=== PATIENT | male | born 1945 | race American Indian/Alaskan Native ===

== ENCOUNTER 2017-10-11 11:42 | Emergency (ER) | payer MEDICARE ==
[2017-10-11 13:08] LABS: Basophils % (Auto) 0.2 % (0.0-1.8); Eosinophils % (Auto) 0.1 % (0.0-4.3); Hematocrit 38.1 % (35.5-45.6); Hemoglobin 12.3 gm/dl (11.8-15.2); Lymphocytes # (Auto) 0.9 K/mm3 (1.2-5.4); Lymphocytes % (Auto) 22.1 % (13.4-35.0); Mean Corpuscular HGB Conc 32 % (32-34); Mean Corpuscular Hemoglobin 28 pg (28-32); Mean Corpuscular Volume 86 fl (84-94); Monocytes # (Auto) 0.2 K/mm3 (0.0-0.8); Monocytes % (Auto) 4.1 % (0.0-7.3); Platelet Count 152 K/mm3 (140-440); Red Blood Count 4.46 M/mm3 (3.65-5.03); Red Cell Distribution Width 16.3 % (13.2-15.2)
[2017-10-11] MEDS ORDERED: PROVENTIL IH ONE ×2 (13:08→13:40)
[2017-10-11 13:19] LABS: BUN/Creatinine Ratio 21; Blood Urea Nitrogen 19 mg/dL (9-20); Hemolysis Index 4
[2017-10-11] MEDS ORDERED: ATROVENT IH ONE (13:40)
[2017-10-11] MEDS ORDERED: SOLU-Medrol IV ONE (13:50)
--- NOTE | 2017-10-11 13:58 | Emergency Department Report ---
HPI - General Chief Complaint: Dyspnea/Respdistress Time Seen by Provider: 10/11/17 13:38 - [facility] HPI: Room 19 The patient is a 72-year-old male presenting with a chief complaint of shortness of breath. The patient states for the past 3-4 days she's had shortness of breath, decreased energy and addition to dyspnea on exertion. Patient states she's had a cough productive of no sputum but denies any history of fever. Patient denies chest pain. The patient went to see his primary physician yesterday and had a chest x-ray performed (the patient brought his chest x-ray on CD and my interpretation reveals hyperinflated lungs consistent with COPD, no focal infiltrates). The patient's primary physician started the patient on "an antibiotic", steroid and albuterol inhaler. The patient was given referral follow-up with a copier and printer field technician who he saw this morning. The patient was sent to the ED by the copier and printer field technician for further evaluation as copier and printer field technician believes the patient's symptoms are due to COPD. Location: Lungs Duration: 3-4 days Quality: Shortness of breath Severity: Moderate Modifying factors: [see above] Context: [see above] Mode of transportation: [not driving] ED Past Medical Hx - Past Medical History Previous Medical History?: Yes Additional medical history: enlarged prostate - Surgical History Past Surgical History?: No Additional Surgical History: Herniorrhaphy 3 - Family History Family history: no significant - Social History Smoking Status: Current Every Day Smoker (1 pack per day) Substance Use Type: None (denies illicit drug use) ED Review of Systems ROS: Stated complaint: SOB Other details as noted in HPI Constitutional: denies: fever Eyes: denies: eye pain ENT: denies: throat pain Respiratory: cough, shortness of breath Cardiovascular: denies: chest pain Endocrine: no symptoms reported Gastrointestinal: denies: abdominal pain Genitourinary: denies: dysuria Musculoskeletal: denies: back pain Neurological: denies: headache Physical Exam - Physical Exam Vital Signs: Vital Signs 10/11/17 10/11/17 10/11/17 12:14 12:28 12:50 Temperature 97.5 F L 97.6 F Pulse Rate 87 84 Pulse Rate [ Posterior Bilateral Throughout] Respiratory 18 17 Rate Respiratory Rate [Posterior Bilateral Throughout] Blood Pressure 177/84 Blood Pressure 154/74 [Left] O2 Sat by Pulse 96 100 100 Oximetry 10/11/17 10/11/17 10/11/17 12:57 13:00 13:16 Temperature Pulse Rate 92 H Pulse Rate [ 81 Posterior Bilateral Throughout] Respiratory 21 Rate Respiratory 20 Rate [Posterior Bilateral Throughout] Blood Pressure Blood Pressure [Left] O2 Sat by Pulse 90 94 Oximetry Physical Exam: GENERAL: The patient is well-developed well-nourished male lying on stretcher. Have slightly increased work of breathing. [] HEENT: Normocephalic. Atraumatic. Extraocular motions are intact. Patient has moist mucous membranes. NECK: Supple. Trachea midline CHEST/LUNGS: Diffuse wheezing. There is no respiratory distress noted. HEART/CARDIOVASCULAR: Regular. There is no tachycardia. There is no gallop rub or murmur. ABDOMEN: Abdomen is soft, nontender. Patient has normal bowel sounds. There is no abdominal distention. SKIN: There is no rash. There is no edema. There is no diaphoresis. NEURO: The patient is awake, alert, and oriented. The patient is cooperative. The patient has normal speech MUSCULOSKELETAL: There is no evidence of acute injury. ED Course Vital Signs 10/11/17 10/11/17 10/11/17 12:14 12:28 12:50 Temperature 97.5 F L 97.6 F Pulse Rate 87 84 Pulse Rate [ Posterior Bilateral Throughout] Respiratory 18 17 17 Rate Respiratory Rate [Posterior Bilateral Throughout] Blood Pressure 177/84 Blood Pressure 154/74 [Left] O2 Sat by Pulse 96 100 100 Oximetry 10/11/17 10/11/17 10/11/17 12:57 13:00 13:16 Temperature Pulse Rate 92 H Pulse Rate [ 81 Posterior Bilateral Throughout] Respiratory 21 Rate Respiratory 20 Rate [Posterior Bilateral Throughout] Blood Pressure Blood Pressure [Left] O2 Sat by Pulse 90 94 Oximetry - Reevaluation(s) Reevaluation #1: 10/11/17 16:10 Patient's wheezing has improved somewhat but is still present. Patient states he does not feel any different. At this point recommends the patient be admitted to the hospital for further evaluation/management. Patient states he does not wish to stay in the hospital. I explained that should he leave the hospital AGAINST MEDICAL ADVICE may encounter increased morbidity and/or mortality. Patient family verbalizes understanding. Patient states he still does not wish to be admitted to the hospital. ED Medical Decision Making - Lab Data Result diagrams: 10/11/17 12:48 10/11/17 12:48 Laboratory Tests 10/11/17 10/11/17 10/11/17 12:48 12:48 12:48 WBC 4.2 L RBC 4.46 Hgb 12.3 Hct 38.1 MCV 86 MCH 28 MCHC 32 RDW 16.3 H Plt Count 152 Lymph % (Auto) 22.1 Sampson % (Auto) 4.1 Eos % (Auto) 0.1 Baso % (Auto) 0.2 Lymph # 0.9 L Sampson # 0.2 Eos # 0.0 Baso # 0.0 Seg Neutrophils % 73.5 H Seg Neutrophils # 3.1 Sodium 141 Potassium 4.6 Chloride 102.7 Carbon Dioxide 26 Anion Gap 17 BUN 19 Creatinine 0.9 Estimated GFR > 60 BUN/Creatinine Ratio 21 Glucose 136 H Calcium 10.0 Total Creatine Kinase 58 CK-MB (CK-2) 2.3 CK-MB (CK-2) Rel Index 3.9 Troponin T < 0.010 NT-Pro-B Natriuret Pep 219.3 - EKG Data -: EKG Interpreted by Me EKG shows normal: sinus rhythm Rate: normal - EKG Data When compared to previous EKG there are: previous EKG unavailable Interpretation: nonspecific ST-T wave jazmyn (T-wave inversion in lead aVL) - Radiology Data Radiology results: image reviewed (outpatient chest x-ray) interpreted by me: Outpatient chest x-ray (read by myself)- hyperexpanded lungs consistent with COPD. No focal infiltrate - Differential Diagnosis COPD, acute bronchitis, pneumonia, Critical care attestation.: If time is entered above; I have spent that time in minutes in the direct care of this critically ill patient, excluding procedure time. ED Disposition Clinical Impression: Shortness of breath Disposition: [id number]-07 LEFT AGAINST MED ADVICE Is pt being admited?: No Does the pt Need Aspirin: No Condition: Undetermined Referrals: PRIMARY CARE, [Primary Care Provider] - 3-5 Days Forms: AMA Form Time of Disposition: 16:12 (patient leaving AMA)
[2017-10-11 14:04] LABS: Creatine Kinase MB 2.3 ng/mL (0.0-4.0)
[2017-10-11 16:21] VITALS: BP 134/71
== END 2017-10-11 16:11 | disposition left against medical advice (07) ==
LOC: ED 11:42
DX: R06.02 Shortness of breath (principal); R05 Cough; F17.200 Nicotine dependence, unspecified, uncomplicated
CPT/HCPCS: 36415; 80048; 82550; 82553; 83880; 84484; 85025; 93005; 93010; 94640; 96374; 99284; J2930